=== PATIENT | female | born 1965 | race Asian ===

== ENCOUNTER → 2024-10-27 | Outpatient (CLI) | payer MEDICAID, SELFPAY ==
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
== END | disposition home or self-care (01) ==
LOC: SMRI 09:28
PROVIDERS: PCP Family Medicine; Referring Provider Family Medicine; Visit Provider Family Medicine
DX: M51.379 Other intervertebral disc degeneration, lumbosacral region without mention of lumbar back pain or lower extremity pain (principal); M51.369 Other intervertebral disc degeneration, lumbar region without mention of lumbar back pain or lower extremity pain; G95.20 Unspecified cord compression
CPT/HCPCS: 72158; A9579